=== PATIENT | female | born 1960 | race Caucasian/White ===

== ENCOUNTER 2020-04-10 17:50 | Inpatient (IN) | payer BC, MEDICAID ==
[~2020-04-10] VITALS: Ht 167.6 cm; Wt 99.0 kg
[~2020-04-10 17:50] MED LIST: ONDA4TAB6 PO
[2020-04-10] MEDS ORDERED: aspirin 81mg tab.chew PO ONE (19:25)
[2020-04-10] MEDS ORDERED: iohexol 350MG/ML 100ml bottle IV ONE (19:38)
[2020-04-10] MEDS ORDERED: ondansetron 4mg rapidly disintigrating tab PO ONE (21:55)
[2020-04-10] MEDS ORDERED: morphine 4 MG/ML inj SYRINge IM ONE (21:55)
[2020-04-10] MEDS ORDERED: morphine 4 MG/ML inj SYRINge IV ONE ×2 (22:45→23:40)
[2020-04-10] MEDS ORDERED: LORazepam 2 mg/ml vial IV ONE (23:00)
[2020-04-10] MEDS ORDERED: iohexol 350 MG/ML 50ML vial IV ONE (23:10)
[2020-04-10 23:36] LABS: BASOPHILS # (AUTO) 0.1 X10'3 (0-0.2); BASOPHILS % (AUTO) 0.7 % (0-1); EOSINOPHILS # (AUTO) 0.3 X10'3 (0-0.9); EOSINOPHILS % (AUTO) 2.6 % (0-6); HEMATOCRIT 36.2 % (35.0-45.0); LYMPHOCYTES # (AUTO) 2.4 X10'3 (1.1-4.8); LYMPHOCYTES % (AUTO) 24.2 % (21-51); MEAN CORPUSCULAR HEMOGLOBIN 31.3 PG (27.0-31.0); MEAN CORPUSCULAR HGB CONC 33.1 g/dL (33.0-36.5); MEAN CORPUSCULAR VOLUME 94.7 FL (78-98); MEAN PLATELET VOLUME 7.6 FL (7.4-10.4); MONOCYTES # (AUTO) 1.1 X10'3 (0-0.9); MONOCYTES % (AUTO) 10.6 % (2-12); NEUTROPHILS # (AUTO) 6.2 X10'3 (1.8-7.7); NEUTROPHILS % (AUTO) 61.9 % (42-75); PLATELET COUNT 234 X10'3 (140-440); RED BLOOD COUNT 3.82 X10'6 (4.20-5.60); RED CELL DISTRIBUTION WIDTH 14.2 % (11.5-14.5); WHITE BLOOD COUNT 10.1 X10'3 (4.5-11.0)
[2020-04-10] MEDS ORDERED: ondansetron/PF 4mg/2ml inj IV ONE (23:40)
[2020-04-10 23:44] LABS: ALANINE AMINOTRANSFERASE 23 U/L (12-78); ALBUMIN 3.6 G/DL (3.4-5.0); ALBUMIN/GLOBULIN RATIO 0.9 (1.1-1.5); ALKALINE PHOSPHATASE 88 IU/L (46-116); ANION GAP 9 (8-16); ASPARTATE AMINO TRANSFERASE 19 U/L (10-37); BILIRUBIN,TOTAL 0.4 MG/DL (0.1-1.0); BLOOD UREA NITROGEN 32 MG/DL (7-18); BUN/CREATININE RATIO 27.4 (6.6-38.0); CALCIUM 9.3 MG/DL (8.5-10.1); CHLORIDE 103 MMOL/L (99-107); CREATININE 1.17 MG/DL (0.40-0.90); GLUCOSE 112 MG/DL (70-104); POTASSIUM 3.9 MMOL/L (3.5-5.1); SODIUM 138 MMOL/L (135-145); TOTAL CARBON DIOXIDE 26.2 MMOL/L (24-32); TOTAL PROTEIN 7.6 G/DL (6.4-8.2); eGFR 47 ML/MIN
[2020-04-11] MEDS ORDERED: LISI40TA4 PO (01:20)
[2020-04-11] MEDS ORDERED: acetaminophen 325mg tablet PO PRN (01:45)
[2020-04-11] MEDS ORDERED: ondansetron/PF 4mg/2ml inj IV PRN (01:45)
[2020-04-11] MEDS ORDERED: HYDROcodone/acetaminophen 5mg/325mg tablet PO PRN (01:45)
[2020-04-11] MEDS ORDERED: potassium CL 10mEq/100ml bag 100 ML IV PRN ×2 (01:45)
[2020-04-11] MEDS ORDERED: magnesium Cl slow-release 64mg tablet PO PRN (01:45)
[2020-04-11] MEDS ORDERED: mag hydrox/Alum hydrox/simeth 30ml oral suspension PO PRN (01:45)
[2020-04-11] MEDS ORDERED: potassium Cl 20 mEq SR tablet PO PRN ×2 (01:45)
[2020-04-11] MEDS ORDERED: magnesium 2GM in 50ml NS 50 ML IV PRN (01:45)
[2020-04-11] MEDS ORDERED: magnesium hydroxide 30ml (MOM) UD suspension PO PRN (01:45)
[2020-04-11] MEDS ORDERED: magnesium 4gm in 100ml NS 100 ML IV PRN (01:45)
[2020-04-11] MEDS ORDERED: morphine 2 MG/ML inj. syringe IV PRN (01:45)
--- NOTE | 2020-04-11 02:30 | NUR ---
Received patient report from Rishi. Patient VSS stable. Transfered by independently ambulating. Cleaned femoral line, surrounding tissue soft and non tender. Will continue to monitor
--- NOTE | 2020-04-11 05:50 | NUR ---
During rounds, patient found to be bleeding on right femoral line. Applied pressure and placed sand bag. Bleeding stopped. Will continue to monitor. Dr. Kessler notified.
--- NOTE | 2020-04-11 06:45 | NUR ---
Problems reprioritized. Patient report given, questions answered & plan of care reviewed with Brooke LOYA.
[2020-04-11 07:05] VITALS: BP 132/78
--- NOTE | 2020-04-11 07:24 | NUR ---
Patient in room [facility]. I have received report from BERNARD LOYA and had the opportunity to ask questions and assume patient care.
[2020-04-11] MEDS: K and/or MAG REPLACEMENT MC SCH ×2 (08:00→20:00)
[2020-04-11] MEDS: enoxaparin 100mg/ml syringe SUBCUT SCH ×2 (08:22→21:11)
[2020-04-11] MEDS ORDERED: pneumococcal 23-VAL P-sac vacc 25 mcg/0.5ml vial IMVAC ONE (10:00)
[2020-04-11 11:00] VITALS: BP 158/80
--- NOTE | 2020-04-11 11:09 | NUR ---
ENRIQUE CURRENTLY IN PT'S ROOM. SHE STATES SHE SEES A THROMBUS IN RIGHT INTERNAL JUGULAR. SHE WILL WRITE REPORT IMMEDIATELY AND SEND A FAXED COPY. WILL NOTIFY SOON IT COMES
[2020-04-11] MEDS ORDERED: GADOTERATE MEGLUMINE 7.5 MMOL/15 ML VIAL IV ONE (13:32)
[2020-04-11] MEDS: normal saline 1000ml 1,000 ML IV SCH (15:25)
--- NOTE | 2020-04-11 15:49 | NUR ---
PT WAS COVID TESTED. TEST IS NEGATIVE
--- NOTE | 2020-04-11 17:25 | NUR ---
Per Dr Cope ok to have a Heart Healthy Diet confirm with DR Rubin when to make NPO for surgery
--- NOTE | 2020-04-11 17:57 | NUR ---
Problems reprioritized. Patient report given, questions answered & plan of care reviewed with ALONA LOYA.
[2020-04-11 18:40] VITALS: BP 116/58
[2020-04-12] VITALS: BP 135/83
[2020-04-12] MEDS: normal saline 1000ml 1,000 ML IV SCH ×4 (03:34→23:51)
[2020-04-12] MEDS: K and/or MAG REPLACEMENT MC SCH ×2 (06:58→19:11)
[2020-04-12 07:00] VITALS: BP 170/92
[2020-04-12 09:01] LABS: BASOPHILS # (AUTO) 0.1 X10'3 (0-0.2); BASOPHILS % (AUTO) 0.6 % (0-1); EOSINOPHILS # (AUTO) 0.1 X10'3 (0-0.9); EOSINOPHILS % (AUTO) 0.8 % (0-6); HEMATOCRIT 37.7 % (35.0-45.0); HEMOGLOBIN 12.7 g/dl (12.0-16.0); LYMPHOCYTES # (AUTO) 1.7 X10'3 (1.1-4.8); LYMPHOCYTES % (AUTO) 17.5 % (21-51); MEAN CORPUSCULAR HGB CONC 33.7 g/dL (33.0-36.5); MEAN CORPUSCULAR VOLUME 94.9 FL (78-98); MEAN PLATELET VOLUME 7.6 FL (7.4-10.4); MONOCYTES # (AUTO) 1.1 X10'3 (0-0.9); MONOCYTES % (AUTO) 11.6 % (2-12); NEUTROPHILS # (AUTO) 6.9 X10'3 (1.8-7.7); NEUTROPHILS % (AUTO) 69.5 % (42-75); PLATELET COUNT 247 X10'3 (140-440); RED BLOOD COUNT 3.97 X10'6 (4.20-5.60); RED CELL DISTRIBUTION WIDTH 13.7 % (11.5-14.5); WHITE BLOOD COUNT 9.9 X10'3 (4.5-11.0)
[2020-04-12 09:10] LABS: PARTIAL THROMBOPLASTIN TIME 32 SECONDS (22-32)
[2020-04-12 09:25] LABS: ALANINE AMINOTRANSFERASE 24 U/L (12-78); ALBUMIN 3.4 G/DL (3.4-5.0); ALBUMIN/GLOBULIN RATIO 0.8 (1.1-1.5); ALKALINE PHOSPHATASE 97 IU/L (46-116); ANION GAP 9 (8-16); ASPARTATE AMINO TRANSFERASE 16 U/L (10-37); BILIRUBIN,TOTAL 0.6 MG/DL (0.1-1.0); BLOOD UREA NITROGEN 15 MG/DL (7-18); BUN/CREATININE RATIO 17.2 (6.6-38.0); CALCIUM 9.2 MG/DL (8.5-10.1); CHLORIDE 101 MMOL/L (99-107); CREATININE 0.87 MG/DL (0.40-0.90); GLUCOSE 96 MG/DL (70-104); SODIUM 138 MMOL/L (135-145); TOTAL CARBON DIOXIDE 27.8 MMOL/L (24-32); TOTAL PROTEIN 7.9 G/DL (6.4-8.2); eGFR 66 ML/MIN
[2020-04-12] MEDS: clopidogrel 75mg tablet PO SCH (10:39)
[2020-04-12] MEDS: enoxaparin 100mg/ml syringe SUBCUT SCH ×2 (10:39→19:15)
[2020-04-12 11:00] VITALS: BP 194/93
--- NOTE | 2020-04-12 18:32 | NUR ---
I have received report from Bren LOYA and had the opportunity to ask questions and assume patient care.
--- NOTE | 2020-04-12 18:38 | NUR ---
Problems reprioritized. Patient report given, questions answered & plan of care reviewed with SHALINI Romero.
[2020-04-12 20:00] VITALS: BP 175/86
[2020-04-13] VITALS: BP 133/80
[2020-04-13 05:17] LABS: BASOPHILS % (AUTO) 0.5 % (0-1); EOSINOPHILS # (AUTO) 0.1 X10'3 (0-0.9); EOSINOPHILS % (AUTO) 1.5 % (0-6); HEMATOCRIT 37.7 % (35.0-45.0); HEMOGLOBIN 12.6 g/dl (12.0-16.0); LYMPHOCYTES # (AUTO) 1.9 X10'3 (1.1-4.8); MEAN CORPUSCULAR HEMOGLOBIN 31.7 PG (27.0-31.0); MEAN CORPUSCULAR HGB CONC 33.3 g/dL (33.0-36.5); MEAN CORPUSCULAR VOLUME 95.3 FL (78-98); MEAN PLATELET VOLUME 7.7 FL (7.4-10.4); MONOCYTES # (AUTO) 1.1 X10'3 (0-0.9); MONOCYTES % (AUTO) 11.2 % (2-12); NEUTROPHILS # (AUTO) 6.3 X10'3 (1.8-7.7); NEUTROPHILS % (AUTO) 66.8 % (42-75); PLATELET COUNT 259 X10'3 (140-440); RED BLOOD COUNT 3.95 X10'6 (4.20-5.60); WHITE BLOOD COUNT 9.4 X10'3 (4.5-11.0)
[2020-04-13 05:36] LABS: ALANINE AMINOTRANSFERASE 20 U/L (12-78); ALBUMIN 3.1 G/DL (3.4-5.0); ALBUMIN/GLOBULIN RATIO 0.7 (1.1-1.5); ALKALINE PHOSPHATASE 87 IU/L (46-116); ANION GAP 10 (8-16); ASPARTATE AMINO TRANSFERASE 16 U/L (10-37); BILIRUBIN,TOTAL 0.4 MG/DL (0.1-1.0); BLOOD UREA NITROGEN 13 MG/DL (7-18); BUN/CREATININE RATIO 15.7 (6.6-38.0); CALCIUM 8.9 MG/DL (8.5-10.1); CHLORIDE 101 MMOL/L (99-107); CREATININE 0.83 MG/DL (0.40-0.90); GLUCOSE 104 MG/DL (70-104); MAGNESIUM 1.9 MG/DL (1.5-2.4); POTASSIUM 3.7 MMOL/L (3.5-5.1); SODIUM 138 MMOL/L (135-145); TOTAL PROTEIN 7.6 G/DL (6.4-8.2); eGFR 70 ML/MIN
--- NOTE | 2020-04-13 06:20 | NUR ---
Patient in room [facility]. I have received report from SHALINI Romero and had the opportunity to ask questions and assume patient care.
--- NOTE | 2020-04-13 06:35 | NUR ---
Problems reprioritized. Patient report given, questions answered & plan of care reviewed with Ady LOYA.
[2020-04-13] MEDS: clopidogrel 75mg tablet PO SCH (07:41)
[2020-04-13] MEDS: normal saline 1000ml 1,000 ML IV SCH (07:42)
[2020-04-13] MEDS ORDERED: apixaban 5mg tablet PO SCH (08:00)
[2020-04-13] MEDS: K and/or MAG REPLACEMENT MC SCH (08:00)
[2020-04-13] MEDS ORDERED: APIX5TAB3 PO ×2 (09:20)
[2020-04-13] MEDS ORDERED: CLOP75TA35 PO (09:20)
--- NOTE | 2020-04-13 12:46 | NUR ---
Minal INMAN regarding patient clearance to return to work considering the patients left ICA is 80-99% stenosed.
[2020-04-13] MEDS ORDERED: dextrose 5%-1/2 normal saline 1,000 ML IV SCH (13:25)
--- NOTE | 2020-04-13 14:50 | NUR ---
Patient discharged home into the care of family. Patient alert, oriented, and appropriate for discharge. Patient educated to call MD Rubin's office immediately to schedule a follow up appointment for their Carotid stenosis. Patient was provided with a note to return to work. Patient educated heavily on the importance of taking the eliquis, and that they must take 10mg BID for 7 days then 5mg BID for the remainder of the therapy and verbalized understanding. Patient left with all belongings. Patient IV removed. Patient not on Tele. No bleeding was present at the central line site. D/c was delayed by transportation and MD observation.
[2020-04-14] MEDS ORDERED: GADOTERATE MEGLUMINE 7.5 MMOL/15 ML VIAL IV ONE (07:50)
== END 2020-04-13 14:50 | disposition home or self-care (01) | DRG 68 ==
LOC: ER 17:50 → ED HOLD 04-11 01:45 → SUR 3N 04-11 02:20
PROVIDERS: ADMIT Family Medicine; ATTEND Family Medicine
PROC: B3251ZZ Computerized Tomography (CT Scan) of Bilateral Common Carotid Arteries using Low Osmolar Contrast (ICD-10-PCS; 2020-04-10)
PROC: B3201ZZ Computerized Tomography (CT Scan) of Thoracic Aorta using Low Osmolar Contrast (ICD-10-PCS; 2020-04-10)
PROC: B32S1ZZ Computerized Tomography (CT Scan) of Right Pulmonary Artery using Low Osmolar Contrast (ICD-10-PCS; 2020-04-10)
PROC: B32T1ZZ Computerized Tomography (CT Scan) of Left Pulmonary Artery using Low Osmolar Contrast (ICD-10-PCS; 2020-04-10)
PROC: B3281ZZ Computerized Tomography (CT Scan) of Bilateral Internal Carotid Arteries using Low Osmolar Contrast (ICD-10-PCS; 2020-04-10)
PROC: 06HY33Z Insertion of Infusion Device into Lower Vein, Percutaneous Approach (ICD-10-PCS; 2020-04-10)
PROC: B54BZZA Ultrasonography of Right Lower Extremity Veins, Guidance (ICD-10-PCS; 2020-04-10)
PROC: 3E0234Z Introduction of Serum, Toxoid and Vaccine into Muscle, Percutaneous Approach (ICD-10-PCS; principal; 2020-04-11)
DX: I65.22 Occlusion and stenosis of left carotid artery (principal); I10 Essential (primary) hypertension; R07.0 Pain in throat; F17.200 Nicotine dependence, unspecified, uncomplicated; R59.0 Localized enlarged lymph nodes; Z85.118 Personal history of other malignant neoplasm of bronchus and lung; Z23 Encounter for immunization; Z88.8 Allergy status to other drugs, medicaments and biological substances; Z79.899 Other long term (current) drug therapy; Z71.6 Tobacco abuse counseling
CPT/HCPCS: 36415; 36556; 70498; 70553; 71045; 71275; 72156; 73501; 80053; 83735; 83880; 84484; 85025; 85610; 85730; 87081; 87635; 90732; 93005; 93880; 96372; 99285; A9575; G0378; J1650; J2060; J2270; J2405; J7030; Q9967

== ENCOUNTER 2022-11-06 14:13 | Emergency (ER) | payer SELFPAY ==
[~2022-11-06] VITALS: Ht 167.6 cm; Wt 97.8 kg
[~2022-11-06 14:13] MED LIST changes: +APIX5TAB3 PO; +CLOP75TA34 PO; +LISI40TA13 PO; -ONDA4TAB6 PO
[2022-11-06 14:41] LABS: BASOPHILS # (AUTO) 0.1 X10'3 (0-0.2); BASOPHILS % (AUTO) 0.7 % (0-1); EOSINOPHILS # (AUTO) 0.2 X10'3 (0-0.9); EOSINOPHILS % (AUTO) 1.2 % (0-6); HEMATOCRIT 37.4 % (35.0-45.0); HEMOGLOBIN 12.5 g/dl (12.0-16.0); LYMPHOCYTES # (AUTO) 1.6 X10'3 (1.1-4.8); LYMPHOCYTES % (AUTO) 12.1 % (21-51); MEAN CORPUSCULAR HEMOGLOBIN 31.7 PG (27.0-31.0); MEAN CORPUSCULAR HGB CONC 33.3 g/dL (33.0-36.5); MEAN CORPUSCULAR VOLUME 94.9 FL (78-98); MONOCYTES % (AUTO) 7.3 % (2-12); NEUTROPHILS # (AUTO) 10.6 X10'3 (1.8-7.7); NEUTROPHILS % (AUTO) 78.7 % (42-75); PLATELET COUNT 231 X10'3 (140-440); RED BLOOD COUNT 3.94 X10'6 (4.20-5.60); RED CELL DISTRIBUTION WIDTH 14.3 % (11.5-14.5); WHITE BLOOD COUNT 13.5 X10'3 (4.5-11.0)
[2022-11-06 14:51] LABS: ALANINE AMINOTRANSFERASE 28 U/L (12-78); ALBUMIN 3.9 G/DL (3.4-5.0); ALBUMIN/GLOBULIN RATIO 1.3 (1.1-1.5); ALKALINE PHOSPHATASE 88 IU/L (46-116); ANION GAP 6 (8-16); ASPARTATE AMINO TRANSFERASE 20 U/L (10-37); BILIRUBIN,TOTAL 0.5 MG/DL (0.1-1.0); BLOOD UREA NITROGEN 27 MG/DL (7-18); BUN/CREATININE RATIO 18.6 (10.0-20.0); CALCIUM 9.5 MG/DL (8.5-10.1); CHLORIDE 104 MMOL/L (99-107); CREATININE 1.45 MG/DL (0.40-0.90); GLUCOSE 102 MG/DL (70-104); POTASSIUM 3.9 MMOL/L (3.5-5.1); SODIUM 141 MMOL/L (135-145); eGFR 37 ML/MIN
[2022-11-06 14:59] LABS: MAGNESIUM 1.8 MG/DL (1.5-2.4)
[2022-11-06] MEDS ORDERED: diazepam inj 5 MG/ML inj. IV ONE (16:35)
[2022-11-06] MEDS ORDERED: morphine 4 MG/ML inj SYRINge IV ONE (16:35)
[2022-11-06] MEDS ORDERED: methylPREDNISolone sod succ 125mg/2ml vial IV ONE (16:45)
[2022-11-06] MEDS ORDERED: albuterol 2.5 MG/3 ML nebule NEB ONE (16:45)
[2022-11-06] MEDS ORDERED: normal saline 1000ml 1,000 ML IV ONE (16:45)
[2022-11-06] MEDS ORDERED: iohexol 350MG/ML 100ml bottle IV ONE (17:38)
[2022-11-06] MEDS ORDERED: fentaNYL/PF 50MCG/1 ML 2ML syringe IV ONE (17:55)
[2022-11-06 18:38] LABS: APTT 28 SECONDS (22-32)
[2022-11-06] MEDS ORDERED: dexamethasone sod phosphate 10mg/ml inj IV STA (18:57)
[2022-11-06] MEDS ORDERED: ketorolac tromethamine 15mg/ml inj. IV ONE (19:00)
[2022-11-06] MEDS ORDERED: LIDO-15 TD (19:07)
[2022-11-06] MEDS ORDERED: LIDOcaine 5% patch TP STA (19:07)
[2022-11-06] MEDS ORDERED: IBUP-1986 PO (19:07)
[2022-11-06 19:31] VITALS: BP 179/99
== END 2022-11-06 19:33 | disposition home or self-care (01) ==
LOC: ER 14:13
DX: R07.89 Other chest pain (principal); F17.200 Nicotine dependence, unspecified, uncomplicated; J44.9 Chronic obstructive pulmonary disease, unspecified; I10 Essential (primary) hypertension; Z88.8 Allergy status to other drugs, medicaments and biological substances; Z79.899 Other long term (current) drug therapy
CPT/HCPCS: 36415; 71045; 71275; 80053; 83735; 83880; 84145; 84484; 85025; 85610; 85730; 86140; 93005; 94640; 96361; 96374; 96375; 99285; J1100; J1885; J2270; J2930; J3010; J3360; J3490; J7030; Q9967; 94760